=== PATIENT | female | born 1950 | race Caucasian/White ===

== ENCOUNTER → 2017-03-15 | Outpatient (CLI) | payer MEDICARE | END | disposition home or self-care (01) | LOC: CFH 08:18 | PROVIDERS: ATTEND Physician Assistant Medical | DX: R16.1 Splenomegaly, not elsewhere classified (principal); I85.00 Esophageal varices without bleeding; K57.30 Diverticulosis of large intestine without perforation or abscess without bleeding; K31.7 Polyp of stomach and duodenum; K21.9 Gastro-esophageal reflux disease without esophagitis; G43.909 Migraine, unspecified, not intractable, without status migrainosus; E11.9 Type 2 diabetes mellitus without complications | CPT/HCPCS: 76700 ==

== ENCOUNTER → 2017-11-12 | Outpatient (CLI) | payer MEDICARE ==
[~2017-11-12] MED LIST: ASCO-96 PO; CHOL40002 PO; CYAN250013 PO; GLIM2TAB2 PO; LEVO50TA5 PO; LISI-170 PO; MAGN250T8 PO; MELA1TAB PO; METF10002 PO; NITR50CA PO; PANT40TA3 PO; SUCR1TAB PO; VIT1TABL34 PO
[2017-11-12 11:48] LABS: ALANINE AMINOTRANSFERASE 36 U/L (12-78); ALBUMIN 3.5 g/dL (3.4-5.0); ANION GAP 11 mmol/L (5-15); CALCIUM 8.8 mg/dL (8.5-10.1); CHLORIDE 105 mmol/L (98-107); CREATININE 0.72 mg/dL (0.55-1.02)
[2017-11-12 11:50] LABS: ALKALINE PHOSPHATASE 81 U/L (45-117); BILIRUBIN,TOTAL 0.5 mg/dL (0.2-1.0); TOTAL PROTEIN 6.5 g/dL (6.4-8.2)
== END | disposition home or self-care (01) ==
LOC: STAR 10:45
PROVIDERS: ATTEND Surgery
DX: Z01.818 Encounter for other preprocedural examination (principal); I51.7 Cardiomegaly
CPT/HCPCS: 36415; 80053; 93005

== ENCOUNTER 2017-11-18 05:57 | Day surgery (SDC) | payer MEDICARE ==
[~2017-11-18] VITALS: Ht 160 cm; Wt 83.0 kg
[2017-11-18] MEDS ORDERED: LACTATED RINGERS 1,000 ML IV SCH (06:05)
[2017-11-18] MEDS ORDERED: EPINEPHRINE 1 MG/ML, 1ML ONE (06:46)
[2017-11-18] MEDS ORDERED: BUPIVACAINE/PF 0.5% ONE (06:46)
[2017-11-18] MEDS ORDERED: MIDAZOLAM 1 MG/ML, 2ML ONE (06:54)
[2017-11-18] MEDS ORDERED: FENTANYL PF 250 MCG/5ML ONE (06:54)
[2017-11-18] MEDS ORDERED: PROPOFOL 10 MG/ML, 20ML ONE (07:16)
[2017-11-18] MEDS ORDERED: GLYCOPYRROLATE 0.2MG/1ML, 5ML ONE (07:16)
[2017-11-18] MEDS ORDERED: NEOSTIGMINE 1 MG/ML, 10ML ONE (07:16)
[2017-11-18] MEDS ORDERED: ONDANSETRON 2MG/ML, 2ML ONE ×2 (07:16→08:19)
[2017-11-18] MEDS ORDERED: SUCCINYLCHOLINE 20 MG/ML, 10ML ONE (07:16)
[2017-11-18] MEDS ORDERED: ROCURONIUM 10MG/ML,5ML ONE (07:16)
[2017-11-18] MEDS ORDERED: HYDROmorphone 1 MG/ML, 1ML IV PRN (07:30)
[2017-11-18] MEDS ORDERED: LABETALOL 5MG/ML, 20ML IV PRN (07:30)
[2017-11-18] MEDS ORDERED: ONDANSETRON 2MG/ML, 2ML IVPush PRN (07:30)
[2017-11-18] MEDS ORDERED: METOCLOPRAMIDE 5 MG/ML, 2ML IV PRN (07:30)
[2017-11-18] MEDS ORDERED: hydrALAzine 20 MG/ML, 1ML IV PRN (07:30)
[2017-11-18] MEDS ORDERED: ACETAMINOPHEN 325 MG TABLET PO PRN (07:30)
[2017-11-18] MEDS ORDERED: OXYcodone 5 MG/5 ML ORAL.SOL UDC PO PRN (07:30)
[2017-11-18] MEDS ORDERED: FENTANYL PF 100 MCG/2ML ONE (08:20)
[2017-11-18] MEDS: FENTANYL PF 100 MCG/2ML IV PRN ×3 (08:23→08:40)
[2017-11-18] MEDS ORDERED: OXYcodone 5 MG/5 ML ORAL.SOL UDC ONE (08:29)
[2017-11-18] MEDS ORDERED: ACETAMINOPHEN 650 MG/20.3 ML UDC ONE (08:29)
[2017-11-18] MEDS ORDERED: HYDROmorphone 2 MG/ML, 1ML ONE (08:44)
== END 2017-11-18 10:35 ==
LOC: OUT 05:57
PROVIDERS: ATTEND Surgery
DX: K43.0 Incisional hernia with obstruction, without gangrene (principal); E11.9 Type 2 diabetes mellitus without complications; K21.9 Gastro-esophageal reflux disease without esophagitis; I10 Essential (primary) hypertension; E03.9 Hypothyroidism, unspecified; E66.01 Morbid (severe) obesity due to excess calories; Z68.32 Body mass index [BMI] 32.0-32.9, adult; Z90.49 Acquired absence of other specified parts of digestive tract; Z90.710 Acquired absence of both cervix and uterus; Z98.890 Other specified postprocedural states
CPT/HCPCS: 49561; 49568; 82962; C1781; J0171; J0330; J1170; J2250; J2405; J2704; J2710; J3010; J3490; J7120